=== PATIENT | female | born 1995 | race Caucasian/White ===

== ENCOUNTER 2018-11-14 02:38 | Emergency (ER) | payer MEDICAID ==
[~2018-11-14] VITALS: Ht 149.9 cm; Wt 65.8 kg
--- NOTE | 2018-11-14 02:38 | NUR ---
PT LEVY VIA GURNEY AND TAKEN TO BED 5
[2018-11-14 02:47] VITALS: BP 122/90
--- NOTE | 2018-11-14 02:50 | NUR ---
23 Y/O F BIBA WITH SI. PT TOOK 7-8 ZOLOFT 100MG TABLETS AND DRANK VODKA. PT CANNOT RECALL TIME IN WHICH PILLS AND ALCOHOL WERE CONSUMED. WHEN ASKED THE PLAN PT HAD TO HARM HERSELF, PT STATED "I WANTED TO CUT MYSELF." SUPERFICIAL CUTS NOTED TO L FOREARM. PT AAOX4. TEARFUL BUT CALM. SPEECH LOW BUT COMPREHENSIBLE. PERRL PRESENT. BEDRAILS X2 UP. EMT AT BEDSIDE. GURNEY LOCKED AND IN LOWEST POSITION. ERMD NOTIFIED OF PT STATUS. WILL CONTINUE TO MONITOR.
--- NOTE | 2018-11-14 03:00 | NUR ---
POSION [facility]OL CALLED. SPOKE WITH TASHA, PHARMACIST WHO GAVE THE FOLLOWING RECOMMENDATIONS: RN CLINICAL RESOURCE FOR 6HOURS OBSERVATION, TYLENOL AND SALICYLATE LEVELS, MAGNESIUM, CBC, CMP, AND ALCOHOL LEVEL. DR. NIXON MADE AWARE OF RECOMENDATIONS.
--- NOTE | 2018-11-14 03:20 | NUR ---
PT AMBULATED TO RESTROOM WITH STEADY GAIT.
[2018-11-14] MEDS ORDERED: ONDANSETRON 4 MG TAB PO ONE (03:40)
[2018-11-14 04:14] LABS: BASOPHILS % (AUTO) 0.5 % (0.0-2.0); EOSINOPHILS % (AUTO) 0.2 % (0.0-4.0); HEMATOCRIT 38.8 % (36-48); HEMOGLOBIN 12.8 g/dL (12.0-16.0); LYMPHOCYTES # (AUTO) 1.6 K/uL (2.5-16.5); LYMPHOCYTES % (AUTO) 21.7 % (20.5-51.1); MEAN CORPUSCULAR HEMOGLOBIN 28 pg (27-31); MEAN CORPUSCULAR HGB CONC 33 g/dL (33-37); MEAN CORPUSCULAR VOLUME 85.2 fL (80-94); MONOCYTES # (AUTO) 0.4 K/uL (0.8-1.0); MONOCYTES % (AUTO) 5.1 % (1.7-9.3); NEUTROPHILS # (AUTO) 5.5 K/uL (1.8-7.7); NEUTROPHILS % (AUTO) 72.5 % (42.2-75.2); PLATELET COUNT (AUTO) 328 K/uL (140-450); RED BLOOD CELL COUNT(AUTO) 4.56 MIL/uL (4.20-5.40); RED CELL DISTRIBUTION WIDTH 12.8 % (11.6-13.7); WHITE BLOOD COUNT (AUTO) 7.5 K/uL (4.8-10.8)
--- NOTE | 2018-11-14 04:32 | NUR ---
PT FATHER AT BEDSIDE.
[2018-11-14 04:36] LABS: APPEARANCE,URINE CLEAR (CLEAR); BILIRUBIN,URINE NEGATIVE (NEGATIVE); BLOOD, URINE NEGATIVE (NEGATIVE); COLOR,URINE YELLOW (YELLOW); LEUKOCYTE ESTERASE ,URINE NEGATIVE (NEGATIVE); NITRITE, URINE NEGATIVE (NEGATIVE); PH,URINE 7.5 (5.0-9.0); UGLUCOSE NEGATIVE (NEGATIVE)
[2018-11-14 04:37] LABS: ANION GAP 10.9 (8-16); CARBON DIOXIDE 27.9 mmol/L (21-32); CREATININE 0.6 mg/dL (0.6-1.3); POTASSIUM 3.8 mmol/L (3.5-5.1)
[2018-11-14 04:45] LABS: ALBUMIN 3.9 g/dL (3.4-5.0); TOTAL BILIRUBIN 0.1 mg/dL (0.0-1.0)
[2018-11-14 04:54] LABS: ACETAMINOPHEN < 0.5 ug/ml (10-30); MAGNESIUM 2.1 mg/dL (1.8-2.4); SALICYLATE < 2.8 mg/dL (2.8-20.0)
[2018-11-14 05:01] LABS: RBC,URINE 0-5 /HPF (0-5); WBC,URINE 0-5 /HPF (0-5)
[2018-11-14 05:05] LABS: BARBITURATE, URINE NEG. ng/ml (NEG <=200); BENZODIAZEPINE, URINE NEG. ng/mL (NEG <=200); CANNABINOID, URINE NEG. ng/mL (NEG <=50); COCAINE, URINE NEG. ng/mL (NEG <=300); OPIATE, URINE NEG. ng/mL (NEG <=2000); PHENCYCLIDINE SCREEN,URINE NEG. ng/mL (NEG <=25)
--- NOTE | 2018-11-14 05:05 | NUR ---
PT LAYING IN BED. VSS AT THIS TIME. STAFF AT BEDSIDE FOR 1:1 MONITORING. BEDRAILS X2 UP. SANDRA LOCKED. WILL CONTINUE TO MONITOR.
--- NOTE | 2018-11-14 06:15 | NUR ---
PT AWAKE. SEATED UPRIGHT. VSS. EMT AT BEDSIDE FOR 1:1 MONITORING. BEDRAILS X2 UP FOR PT SAFETY. GURNEY LOCKED. ALL PT NEEDS MET AT THIS TIME. WILL CONTINUE TO MONITOR.
--- NOTE | 2018-11-14 07:05 | NUR ---
RECEIVED REPORT FROM RACHEL DELUNA
--- NOTE | 2018-11-14 07:10 | NUR ---
BEDSIDE REPORT GIVEN TO RACHEL CAMPOS. TRANSFER OF CARE AT THIS TIME.
--- NOTE | 2018-11-14 07:16 | NUR ---
GAVE REPORT TO DR. CACERES ON PT.
--- NOTE | 2018-11-14 07:31 | NUR ---
Dr. Blair (Psychiatrist) evaluating patient via telepsychiatry.
[2018-11-14] MEDS ORDERED: DILTIAZEM 25 MG/5 ML VIAL IVP ONE (07:45)
--- NOTE | 2018-11-14 08:02 | NUR ---
spoke to dr. curiel and her reccommendation was to speak with the for "collateral reassurance" that pt is not typically suicidal or that there was no recent discussion of suicide or harming herself, or that this has not happened before. Dr. Curiel wants to confirm the story that she received from the pt about drinking alcohol and getting into an argument with her . I attempted to contact the for Dr. Curiel at [phone] but there was no answer. Dr. Curiel requested that I keep trying to get a hold of him, and for me to ask him about the situation and determine if she is ok to discharge. I informed Dr. Curiel that I do not feel comfortable making that determination, but that I will continue to attempt to contact the and refer him to contact her office. She advised that she would submit a report containing our discussion and we would go from there once she talks with the . Until then, pt will continue to be on a hold.
--- NOTE | 2018-11-14 09:25 | NUR ---
PT ATTEMPTED TO CONTACT HER WITH HER CELL PHONE, NO ANSWER AT THIS TIME
--- NOTE | 2018-11-14 09:34 | NUR ---
PT SPOKE WITH AND INFORMED HIM TO ANSWER THE PHONE FOR THE OUT OF STATE NUMBER BECAUSE IT IS THE PSYCHIATRIST ATTEMPTING TO REACH HIM.
--- NOTE | 2018-11-14 09:45 | NUR ---
SPOKE WITH DR. CACERES AND SHE STATED SHE WILL CONTACT THE NOW.
--- NOTE | 2018-11-14 10:00 | NUR ---
PT CALLED FOR A RIDE
[2018-11-14 12:00] VITALS: BP 121/81
--- NOTE | 2018-11-14 12:00 | NUR ---
DPatient discharged with v/s stable. Written and verbal after care instructions given and explained. Patient alert, oriented and verbalized understanding of instructions. Ambulatory with steady gait. All questions addressed prior to discharge. ID band removed. Patient advised to follow up with PMD. Opportunity to ask questions provided and answered. Pt states she will call a LIFT ride to pick her up.
== END 2018-11-14 12:05 | disposition home or self-care (01) ==
LOC: MED 02:38
DX: R45.851 Suicidal ideations (principal); F32.9 Major depressive disorder, single episode, unspecified; F10.10 Alcohol abuse, uncomplicated; Y90.3 Blood alcohol level of 60-79 mg/100 ml
CPT/HCPCS: 36415; 80053; 80305; 81001; 83735; 84702; 85025; 87086; 93005; 96374; 99284; G0480; G0482; J3490; Q0162